=== PATIENT | female | born 1985 | race Caucasian/White ===

== ENCOUNTER 2023-06-08 16:21 | Inpatient (IN) | payer SELFPAY ==
[~2023-06-08] VITALS: Ht 160 cm; Wt 80.8 kg
[2023-06-08] VITALS (29 sets, daily range): BP systolic 10–162; BP diastolic 57–104; PULSE 72–95; TEMP 97.7–98
--- NOTE | 2023-06-08 16:00 | NUR ---
PT AMBULATORY TO UNIT WITH SPOUSE. SENT FROM OFFICE. REPORTS NO LOF, NO VAGINAL BLEEDING, FEELS BABY "HICCUP" BUT NOT MOVE. UNDERSTANDS POC.
--- NOTE | 2023-06-08 16:02 | NUR ---
DR. CHACKO AT BEDSIDE FOR SVE AND AROM. SVE /-2. AROM COMPLETE, SMALL AMOUNT OF CLEAR FLUID. PT TOLERATED WELL. EFM CAT 1.
[2023-06-08 16:20] LABS: BASO % 0.3 % (0.0-2.0); EOS # 0.2 K/mm3 (0.0-0.7); GRAN # 7.1 K/mm3 (1.4-6.5); HEMATOCRIT 46.3 % (37.0-47.0); LYMPH # 2.5 K/mm3 (1.2-3.4); LYMPH % 23.9 % (20.0-51.0); MEAN CELL VOLUME 91 fl (80.0-100.0); MEAN CORPUSCULAR HEMOGLOBIN 29 pg (27-31); MEAN CORPUSCULAR HGB CONC 32 g/dl (33.0-37.0); MEAN PLATELET VOLUME 12.4 fl (7.4-10.4); MONO # 0.7 K/mm3 (0.1-0.6); MONO % 6.4 % (1.7-9.3); PLATELET COUNT 199 K/mm3 (130-400); REDCELL DISTRIBUTION WIDTH-CV 14.3 % (11.5-14.5)
[~2023-06-08 16:21] MED LIST: LR & Oxytocin 500 ML IV SCH; LR 1,000 ML IV SCH; MOTRIN 600600 MG/TAB PO; NICODERM C21 MG/PATC TD; PERCOCET 325 MG1 TA2 PO; PRENATAL TABLET PO; hydrALAZINE 20 MG/ML 1 ML VIAL IV PRN
[2023-06-08] MEDS ORDERED: Penicillin G Potassium 5,000,000 UNITS in NS 100 ML IV ONE (16:30)
[2023-06-08 16:38] LABS: ALBUMIN 1.3 gm/dL (3.5-5.0); BILIRUBIN,TOTAL 0.2 mg/dL (0.2-1.2); CALCIUM 8.1 mg/dL (8.4-10.2); CREATININE, serum 0.66 mg/dL (0.57-1.11); POTASSIUM 4.1 mmol/L (3.5-4.5); TOTAL PROTEIN 4.9 gm/dL (6.2-8.1)
[2023-06-08 17:39] LABS: TRICYCLIC ANTIDEPRESS URINE NEGATIVE (NEGATIVE)
[2023-06-08] MEDS ORDERED: ROPivacaine PF 0.2% 200 ML IV ONE (20:08)
[2023-06-08] MEDS ORDERED: Penicillin G Potassium 2,500,000 UNITS in NS 100 ML IV SCH (20:30)
[2023-06-08] MEDS ORDERED: ePHEDrine 50 MG/10 ML VIAL IV PRN (20:45)
[2023-06-08] MEDS ORDERED: Ondansetron 4 MG/2 ML VIAL IV PRN (20:45)
[2023-06-08] MEDS ORDERED: diphenhydrAMINE 50 MG/ML 1 ML VIAL IV PRN (20:45)
[2023-06-08] MEDS ORDERED: diphenhydrAMINE 25 MG CAP PO PRN (20:45)
[2023-06-08] MEDS ORDERED: Naloxone 0.4 MG/ML VIAL IV PRN ×2 (20:45→21:15)
[2023-06-08] MEDS ORDERED: traZODone 50 MG TAB PO PRN (21:00)
[2023-06-08] MEDS ORDERED: Measles/Mumps/Rubella Virus Vaccine Live w Diluent 0.5 ML VIAL SQ SCH (21:15)
[2023-06-08] MEDS ORDERED: Magnes Hydrox (MOM) 80 MG/ML 30 ML CUP PO PRN (21:15)
[2023-06-08] MEDS ORDERED: Phenylephrine/Mineral Oil/Petrolatum 57 GM TUBE RC PRN (21:15)
[2023-06-08] MEDS ORDERED: Acetaminophen 500 MG TAB PO PRN (21:15)
[2023-06-08] MEDS ORDERED: Ibuprofen 800 MG TAB PO SCH (21:15)
[2023-06-08] MEDS ORDERED: Loratadine 10 MG TAB PO PRN (21:15)
[2023-06-08] MEDS ORDERED: oxyCODONE 5 MG TAB PO PRN (21:15)
[2023-06-08] MEDS ORDERED: Witch Hazel 50% Pads Bulk TUB TP PRN (21:15)
[2023-06-08] MEDS ORDERED: Mag/Al Hydrox/Simeth Susp 30 ML CUP PO PRN (21:15)
[2023-06-09] VITALS (11 sets, daily range): BP systolic 67–155; BP diastolic 44–89; PULSE 72–98; TEMP 97.8–98
--- NOTE | 2023-06-09 01:00 | NUR ---
0027- PATIENT CALLED OUT STATING SHE HAD INCREASE IN PELVIC PRESSURE. 0028- DR. BOBBY AT BEDSIDE. 0032- SVE COMPLETE/+2. BED BROKEN DOWN FOR DELIVERY. DECKER CATHETER REMOVED 0036- PATIENT BEGINS PUSHING WITH CONTRACTIONS. 0037- SPONTANTEOUS VAGINAL DELIVERY OF VIABLE BABY GIRL. CORD CLAMPED BY DR. BOBBY AND CUT BY FOB. BABY TO MOTHERS ABDOMEN. DRIED AND STIMULATED. BABY CARES ASSUMED BY NURSERY RN. 0047- DR. BOBBY PERFORMS MANUAL SWEEP FOR PARTIAL PLACENTA REMOVAL. PERINEUM INTACT. PITOCIN STARTED AT 333ML/HR PER PROTOCOL. RECOVERY STARTED.
[2023-06-09] MEDS ORDERED: ceFAZolin 2 G in Water For Injection,Sterile 20 ML IV ONE (01:15)
[2023-06-09] MEDS ORDERED: Sennosides/Docusate 8.6-50 MG TAB PO SCH (08:00)
--- NOTE | 2023-06-09 11:41 | NUR ---
Railroad Accountant met with patient and her , Gabriel (ph#[phone]) in response to social work consult. Patient lives here in [place] and has three other children. Patient advised one is 18, one is in high school, and her youngest goes to [employer]. Patient advised her mother, Beth is caring for her other children while she is here. Patient is currently self pay and is open to meeting with [employer] Financial Counselor to discuss applying for Medicaid. Patient feels like she has a good support system and is "doing much better than nine years ago". Patient advised she has all supplies needed for baby girl, Kathrin and has a bassinet for her to sleep in. Patient is currently and is in need of a pump. Patient would like to get set up with [facility], but needs some assistance. Patient gave permission to call [facility] on her behalf to have them get in touch with her. Patient does report a history of anxiety and depression, but is not currently on any medications. Patient is established with a counselor in [facility]. SKY provided [facility] Resource Guide to patient who stated she has no further questions or concerns at this time. SKY contacted Tashia at [facility] who advised she could call patient to get her established. Tashia also confirmed that if patient qualifies for [facility], they can get her set up with a breast pump. SKY spoke with RN and Dr. Wall about the above information.
[2023-06-09] MEDS ORDERED: Rho(D) Imm Globulin 1,500 UNITS (300 MCG)/2 ML SYRINGE IV\\IM SCH (12:00)
[2023-06-10 07:00] VITALS: BP 117/78; PULSE 69; TEMP 98
[2023-06-10 17:00] VITALS: BP 124/74; PULSE 76; TEMP 98.2
[2023-06-10 22:10] VITALS: BP 136/80; PULSE 84; TEMP 98.9
[2023-06-11 07:00] VITALS: BP 110/72; PULSE 81; TEMP 98.5
[2023-06-11] MEDS ORDERED: IBU800 M1 PO (09:53)
--- NOTE | 2023-06-11 11:30 | NUR ---
PT MOVED TO [facility]ARDER STATUS AND DISCHARGED PT PER .
== END 2023-06-11 11:30 | disposition home or self-care (01) | DRG 806 ==
LOC: LDRO 16:21 → LDR 16:22 → OB 06-09 04:46
PROVIDERS: ADMIT Obstetrics & Gynecology
PROC: 10E0XZZ Delivery of Products of Conception, External Approach (ICD-10-PCS; principal; 2023-06-09)
PROC: 10D17Z9 Manual Extraction of Products of Conception, Retained, Via Natural or Artificial Opening (ICD-10-PCS; 2023-06-09)
PROC: 10907ZC Drainage of Amniotic Fluid, Therapeutic from Products of Conception, Via Natural or Artificial Opening (ICD-10-PCS; 2023-06-09)
PROC: 3E033VJ Introduction of Other Hormone into Peripheral Vein, Percutaneous Approach (ICD-10-PCS; 2023-06-09)
DX: O36.5930 Maternal care for other known or suspected poor fetal growth, third trimester, not applicable or unspecified (principal); O72.0 Third-stage hemorrhage; Z37.0 Single live birth; O99.824 Streptococcus B carrier state complicating childbirth; O13.4 Gestational [pregnancy-induced] hypertension without significant proteinuria, complicating childbirth; O99.344 Other mental disorders complicating childbirth; F41.9 Anxiety disorder, unspecified; F32.A Depression, unspecified; F43.10 Post-traumatic stress disorder, unspecified; Z3A.36 36 weeks gestation of pregnancy
CPT/HCPCS: J0690; J1920; J2405; J2540; J2590; J2791; J2795; J7120